=== PATIENT | male | born 1980 | race Caucasian/White ===

== ENCOUNTER → 2017-04-02 | Outpatient (CLI) | payer BC | END | disposition home or self-care (01) | LOC: GMAM 17:12 | PROVIDERS: ATTEND Family Medicine | DX: M79.671 Pain in right foot (principal) ==

== ENCOUNTER → 2017-05-14 | Outpatient (CLI) | payer BC | LOC: GMAM 10:25 | PROVIDERS: ATTEND Family Medicine | DX: E78.2 Mixed hyperlipidemia (principal) ==

== ENCOUNTER → 2017-08-12 | Outpatient (CLI) | payer BC | LOC: GMAM 11:17 | PROVIDERS: ATTEND Family Medicine | DX: M10.9 Gout, unspecified (principal) ==

== ENCOUNTER → 2020-01-18 | Outpatient (CLI) | payer BC | LOC: GMAM 10:41 | PROVIDERS: ATTEND Family Medicine | DX: M10.9 Gout, unspecified (principal) ==